=== PATIENT | male | born 1985 | race African-American/Black ===

== ENCOUNTER 2024-04-01 17:56 | Emergency (ER) | payer OTHER ==
[2024-04-01] MEDS ORDERED: Dexamethasone 10 MG/ML VIAL ONE (22:18)
[2024-04-01] MEDS ORDERED: Ipratropium/Albuterol 3 ML NEB ONE (22:26)
== END 2024-04-01 23:08 | disposition home or self-care (01) ==
LOC: ERS 17:56
DX: J45.901 Unspecified asthma with (acute) exacerbation (principal)
CPT/HCPCS: 71045; 96372; J1100; J7620